=== PATIENT | male | born 1975 | race Caucasian/White ===

== ENCOUNTER 2016-06-26 15:02 | Emergency (ER) | payer MEDICARE, OTHER ==
[2016-06-26] MEDS ORDERED: LACTATED RINGERS 1,000 ML ONE (16:04)
[2016-06-26] MEDS ORDERED: MORPHINE SULFATE 4 MG/ML SYRINGE ONE (16:05)
[2016-06-26] MEDS ORDERED: MORPHINE SULFATE 2 MG/ML SYRINGE ONE (16:05)
[2016-06-26] MEDS ORDERED: ONDANSETRON 4 MG/2ML 2 ML VIAL ONE (16:06)
[2016-06-26 16:13] LABS: BASO # 0.1 K/mm3 (0.0-0.2); EOS # 0.2 (0.0-0.5); EOS % 2.3 % (0.9-2.9); HEMATOCRIT 44.3 % (32.0-52.0); HEMOGLOBIN 14.7 gm/l (14.0-18.0); IMM NEUT # 0.1 K/mm3 (0-0.2); IMM NEUT% 0.6 % (0-1); LYMPH # 2.5 (1.0-4.8); LYMPH % 29.3 % (15-45); MEAN CELL VOLUME 88.1 fl (80.0-94.0); MEAN CORPUSCULAR HEMOGLOBIN 29.2 pg (27.0-31.0); MEAN CORPUSCULAR HGB CONC 33.2 g/dl (33.0-37.0); MEAN PLATELET VOLUME 10.1 fl (7.4-10.4); MONO # 0.6 (0.0-0.8); MONO % 6.6 % (4-12); NEUT % 60.2 % (43-75); PLATELET COUNT 291 K/mm3 (130-400); RED CELL DISTRIBUTION WIDTH 12.7 % (11.5-14.5)
[2016-06-26 16:26] LABS: ALB/GLOB RATIO 1.3 (>1.0); ALBUMIN 4.2 gm/dL (3.5-5.7); CALCIUM 9.9 mg/dL (8.6-10.3)
--- NOTE | 2016-06-26 16:59 | RAD ---
Exam: Three-view right elbow COMPARISON: None INDICATION: Fall off deck 15 feet, right elbow pain. Findings: AP, lateral and oblique views of the right elbow were obtained. Lateral view is slightly obliqued in the elbow is slightly flexed which limits evaluation for joint effusion. No joint effusion is identified. Alignment is within normal limits. No fracture is identified. IMPRESSION: No acute osseous abnormality in the right elbow.
--- NOTE | 2016-06-26 17:01 | RAD ---
Exam: Complete right shoulder COMPARISON: 12/24/2015 INDICATION: Fall off deck approximately 15 feet, right shoulder pain. Findings: AP, Grashey and transscapular y views of the right shoulder were obtained. Overall normal bone mineralization. Alignment is normal. No acute fracture is identified. Moderate to severe degenerative changes are again appreciated within the glenohumeral joint, with joint space narrowing and exuberant osteophyte formation. Visualized right hemithorax within normal limits. IMPRESSION: No acute osseous abnormality within the right shoulder. Prominent degenerative changes within the glenohumeral joint are again noted.
--- NOTE | 2016-06-26 17:01 | RAD ---
Exam: 4 view left knee COMPARISON: None INDICATION: Fall off deck 15 feet, left knee pain. Findings: AP, lateral and bilateral oblique views of left knee were obtained. There is no significant joint effusion. Alignment is normal. No fracture is identified. IMPRESSION: No acute osseous abnormality in the left knee.
[2016-06-26] MEDS ORDERED: KETOROLAC TROMETHAMINE 30 MG/ML 1 ML VIAL ONE (17:25)
== END 2016-06-26 18:02 | disposition home or self-care (01) ==
LOC: ED 15:02
DX: S40.011A Contusion of right shoulder, initial encounter (principal); M25.521 Pain in right elbow; S83.412A Sprain of medial collateral ligament of left knee, initial encounter; F17.220 Nicotine dependence, chewing tobacco, uncomplicated; W17.89XA Other fall from one level to another, initial encounter; Y93.H3 Activity, building and construction; Y92.89 Other specified places as the place of occurrence of the external cause; Y99.0 Civilian activity done for income or pay
CPT/HCPCS: 83690; 85025; 80053; 80307; 73080; 73564; 73030; 96375 ×2; 99284 ×2; 96374; J2270 ×2; J1885; J2405; J7120